=== PATIENT | male | born 1955 | race Caucasian/White ===

== ENCOUNTER 2018-04-07 20:46 | Emergency (ER) | payer MEDICARE, MEDICAID ==
[2018-04-07 21:01] VITALS: BP 133/80; PULSE 71; RESP 18; TEMP 98; O2SAT 96
--- NOTE | 2018-04-07 21:17 | C.PDOC ---
History Of Present Illness 62 y/o male comes in to ED complaining of some discoloration and swelling of his left forearm. Patients friend gave him warm compress and patient reports that the swelling got worse. Patient does not remember injuring himself and denies. Has no other complaints. Time Seen by Provider: 04/07/18 21:10 Chief Complaint (Nursing): Upper Extremity Problem/Injury History Per: Patient History/Exam Limitations: no limitations Onset/Duration Of Symptoms: Hrs Current Symptoms Are (Timing): Still Present Past Medical History Reviewed: Historical Data, Nursing Documentation, Vital Signs Vital Signs: Last Vital Signs Temp 98.0 F 04/07/18 20:48 Pulse 71 04/07/18 20:48 Resp 18 04/07/18 20:48 BP 133/80 04/07/18 20:48 Pulse Ox 96 04/07/18 20:48 - Medical History PMH: Asthma, HTN, Hypercholesterolemia Family History: States: No Known Family Hx - Social History Hx Alcohol Use: No Hx Substance Use: No - Immunization History Hx Tetanus Toxoid Vaccination: No Hx Influenza Vaccination: No Hx Pneumococcal Vaccination: No Review Of Systems Except As Marked, All Systems Reviewed And Found Negative. Constitutional: Negative for: Fever, Chills Musculoskeletal: Positive for: Other (Left forearm discoloration and swelling) Physical Exam - Physical Exam Appears: Non-toxic, No Acute Distress Skin: Warm, Dry Head: Atraumatic, Normacephalic Eye(s): bilateral: Normal Inspection Oral Mucosa: Moist Neck: Supple Extremity: Capillary Refill (less than 2 seconds), No Deformity, Other (Small 2cm area of ecchymosis that is slightly tender; appears to be purple in the center with bluish green discoloration in the peripheral) Extremity: Bilateral: Normal ROM Neurological/Psych: Oriented x3, Normal Speech ED Course And Treatment O2 Sat by Pulse Oximetry: 96 (RA) Pulse Ox Interpretation: Normal Disposition - Disposition Disposition: HOME/ ROUTINE Disposition Time: 21:16 Condition: STABLE Additional Instructions: Follow up with PMD within 1-2 days. Return to ED if feel worse. 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 - Scribe Statement The provider has reviewed the documentation as recorded by the Scribe Tamar Daus All medical record entries made by the Oli were at my direction and personally dictated by me. I have reviewed the chart and agree that the record accurately reflects my personal performance of the history, physical exam, medical decision making, and the department course for this patient. I have also personally directed, reviewed, and agree with the discharge instructions and disposition.
== END 2018-04-07 21:22 | disposition home or self-care (01) ==
LOC: C.ER 20:46
DX: S50.12XA Contusion of left forearm, initial encounter (principal); X58.XXXA Exposure to other specified factors, initial encounter; E78.00 Pure hypercholesterolemia, unspecified; I10 Essential (primary) hypertension